=== PATIENT | male | born 1955 | race Caucasian/White ===

== ENCOUNTER 2025-04-04 16:47 | Emergency (ER) | payer MEDICARE ==
[2025-04-04] MEDS ORDERED: Ondansetron 4 MG Tab.DIS PO ONE (16:48)
[2025-04-04 17:04] VITALS: BP 133/77; PULSE 79
[2025-04-04 17:12] LABS: BASOPHILS PERCENT AUTO 0.1 % (0.3-3.8); EOSINOPHILS PERCENT AUTO 0.1 % (0.1-6.8); HEMATOCRIT 42.3 % (38.3-50.1); HEMOGLOBIN 14.8 g/dL (12.9-17.7); LYMPHOCYTES PERCENT AUTO 10.9 % (15.8-45.3); MEAN CORPUSCULAR HEMOGLOBIN 32.1 pg (27.0-33.3); MEAN CORPUSCULAR HGB CONC 35.1 g/dL (28.7-35.3); MEAN CORPUSCULAR VOLUME 91.5 fL (80.8-98.7); MEAN PLATELET VOLUME 8.4 fL (6.7-11.0); MONOCYTES ABSOLUTE AUTO 0.9 x10-3/uL (0.0-1.2); MONOCYTES PERCENT AUTO 9.4 % (5.5-15.2); NEUTROPHILS ABSOLUTE AUTO 7.6 x10-3/uL (1.7-6.9); NEUTROPHILS PERCENT AUTO 79.5 % (40.3-71.8); PLATELET COUNT,PLT 115 x10(3)uL (117-477); RED BLOOD CELL COUNT 4.62 x10(6)uL (3.90-5.90); WHITE BLOOD CELL COUNT,WBC 9.5 x10-3/uL (3.2-10.1)
[2025-04-04] MEDS: Aspirin 81 MG Tab.Chew PO ONE (17:12)
[2025-04-04 17:16] LABS: BLOOD UREA NITROGEN,BUN 22 mg/dL (7-18); BUN/CREATININE RATIO 16.9 (9-20); CALCIUM 9.5 mg/dL (8.6-10.2); CARBON DIOXIDE,CO2 20 mmol/L (21-32); CHLORIDE,CL 104 mmol/L (100-110); CREATININE 1.3 mg/dL (0.70-1.30); EST CRCL DRUG DOSING (CG) 60.52 mL/min; ESTIMATED GFR 60 mL/min (>60); GLUCOSE RANDOM 109 mg/dL (80-116); POTASSIUM,K 3.8 mmol/L (3.5-5.3); SODIUM,NA 137 mmol/L (135-145)
[2025-04-04 17:19] LABS: INR 1.07 (1.00-1.24)
[2025-04-04 17:23] LABS: ALANINE AMINOTRANSFERASE,ALT 35 U/L (12-36); ALBUMIN 3.8 g/dL (3.2-4.6); ALKALINE PHOSPHATASE 85 IU/L (56-112); ASPARTATE AMNIOTRANSFERASE,AST 17 IU/L (5-25); BILIRUBIN TOTAL 1.1 mg/dL (0.1-1.3); PROTEIN TOTAL,TP 7.6 g/dL (6.0-8.0)
[2025-04-04] MEDS: Ondansetron 4 MG/2 ML SDV ONE (17:34)
[2025-04-04] MEDS: Ondansetron 4 MG/2 ML SDV IVPUSH ONE (17:34)
== END 2025-04-04 18:04 | disposition home or self-care (01) ==
LOC: FB.ED 16:47
DX: K52.9 Noninfective gastroenteritis and colitis, unspecified (principal); Z88.5 Allergy status to narcotic agent; Z79.01 Long term (current) use of anticoagulants; Z79.899 Other long term (current) drug therapy
CPT/HCPCS: 36415; 71045; 80053; 84484; 85025; 85610; 93005; 96374; 99285-25; A9270-GY; J2405; Q0162

== ENCOUNTER 2025-04-06 17:45 | Emergency (ER) | payer MEDICARE ==
[2025-04-06] MEDS: Ondansetron 4 MG/2 ML SDV IVPUSH ONE (18:00)
[2025-04-06 18:18] LABS: BASOPHILS PERCENT AUTO 0.2 % (0.3-3.8); HEMATOCRIT 43.2 % (38.3-50.1); HEMOGLOBIN 15.1 g/dL (12.9-17.7); LYMPHOCYTES ABSOLUTE AUTO 1.3 x10-3/uL (0.5-4.5); LYMPHOCYTES PERCENT AUTO 13.9 % (15.8-45.3); MEAN CORPUSCULAR HEMOGLOBIN 31.6 pg (27.0-33.3); MEAN CORPUSCULAR VOLUME 90.5 fL (80.8-98.7); MEAN PLATELET VOLUME 8.8 fL (6.7-11.0); MONOCYTES ABSOLUTE AUTO 1.2 x10-3/uL (0.0-1.2); MONOCYTES PERCENT AUTO 12.7 % (5.5-15.2); NEUTROPHILS ABSOLUTE AUTO 6.8 x10-3/uL (1.7-6.9); NEUTROPHILS PERCENT AUTO 73.2 % (40.3-71.8); PLATELET COUNT,PLT 141 x10(3)uL (117-477); RED BLOOD CELL COUNT 4.77 x10(6)uL (3.90-5.90); WHITE BLOOD CELL COUNT,WBC 9.3 x10-3/uL (3.2-10.1)
[2025-04-06 18:25] LABS: BLOOD UREA NITROGEN,BUN 23 mg/dL (7-18); BUN/CREATININE RATIO 15.3 (9-20); CARBON DIOXIDE,CO2 23 mmol/L (21-32); CHLORIDE,CL 102 mmol/L (100-110); CREATININE 1.5 mg/dL (0.70-1.30); EST CRCL DRUG DOSING (CG) 52.45 mL/min; ESTIMATED GFR 51 mL/min (>60); GLUCOSE RANDOM 131 mg/dL (80-116); POTASSIUM,K 4.3 mmol/L (3.5-5.3); SODIUM,NA 135 mmol/L (135-145)
[2025-04-06] MEDS: Iopamidol 755 Mg/ML 100 ML Bottle IV SCH (18:30)
[2025-04-06 18:31] LABS: A/G RATIO 0.8; ALANINE AMINOTRANSFERASE,ALT 37 U/L (12-36); ALBUMIN 3.4 g/dL (3.2-4.6); ALKALINE PHOSPHATASE 79 IU/L (56-112); ASPARTATE AMNIOTRANSFERASE,AST 32 IU/L (5-25); BILIRUBIN TOTAL 0.7 mg/dL (0.1-1.3); INR 1.22 (1.00-1.24); LACTIC ACID 1.8 mmol/L (0.4-2.0); PROTEIN TOTAL,TP 7.5 g/dL (6.0-8.0); PROTHROMBIN TIME 12.5 sec (9.0-11.1)
[2025-04-06] MEDS: Sodium Chloride 0.9% 1,000 ML IV SCH (18:37)
[2025-04-06 18:49] LABS: TROPONIN I 7.7 pg/mL (4.0-60.3)
[2025-04-06 19:10] LABS: BILIRUBIN,URINE NEGATIVE (NEGATIVE); GLUCOSE,URINE >1000 mg/dL (NORMAL); KETONES,URINE NEGATIVE (NEGATIVE); LEUKOCYTE ESTERASE,URINE NEGATIVE (NEGATIVE); NITRITE,URINE NEGATIVE (NEGATIVE); OCCULT BLOOD,URINE MODERATE (NEGATIVE); PROTEIN,URINE TRACE mg/dL (NEGATIVE); UROBILINOGEN,URINE NORMAL (NEGATIVE)
[2025-04-06 19:11] LABS: APPEARANCE,URINE CLEAR (CLEAR); COLOR,URINE YELLOW (YELLOW)
[2025-04-06 19:18] LABS: BACTERIA,URINE FEW (NS); SQUAMOUS EPITHELIAL CELLS,UR FEW (NS,R,O); WBC,URINE 0-5 (0-5)
[2025-04-06] MEDS: Prochlorperazine 5 MG in Sodium Chloride 0.9% 50 ML IV ONE (19:38)
[2025-04-06] MEDS ORDERED: Prochlorperazine 5 MG Tab PO ONE (20:04)
[2025-04-06] MEDS: Pantoprazole 40 MG Vial IVPUSH ONE (20:14)
[2025-04-06 20:47] VITALS: BP 131/69; PULSE 86
== END 2025-04-06 20:20 | disposition home or self-care (01) ==
LOC: FB.ED 17:45
DX: K52.9 Noninfective gastroenteritis and colitis, unspecified (principal); K21.9 Gastro-esophageal reflux disease without esophagitis; R06.9 Unspecified abnormalities of breathing; Z88.5 Allergy status to narcotic agent; Z79.01 Long term (current) use of anticoagulants; Z79.899 Other long term (current) drug therapy
CPT/HCPCS: 36415; 71045; 74177; 80053; 81001; 83605; 83690; 83880; 84484; 85025; 85610; 93005; 93010; 96361; 96365; 96375; 99283; 99284-25; J0780; J2405; J2470; J7030; Q0164; Q9967